=== PATIENT | female | born 2000 | race Caucasian/White ===

== ENCOUNTER 2025-08-14 14:05 | Emergency (ER) | payer OTHER ==
[~2025-08-14] VITALS: Ht 144.8 cm; Wt 61.3 kg
[2025-08-14 14:07] VITALS: TEMP 98.3
[2025-08-14 14:40] LABS: PLATELET COUNT (AUTO) 246 K/uL (150-450); RED BLOOD CELL COUNT(AUTO) 4.18 MIL/uL (4.00-5.20); RED CELL DISTRIBUTION WIDTH 15.8 % (11.5-14.5); WHITE BLOOD COUNT (AUTO) 10.1 K/uL (4.5-11.0)
[2025-08-14 14:50] LABS: CALCIUM, TOTAL 9.6 mg/dL (8.8-10.5); CREATININE 0.50 mg/dL (0.60-1.30); GLOMERULAR FILTR. RATE CALC > 60 mL/min (>60); GLUCOSE,RANDOM 139 mg/dL (70-110); SODIUM SERUM 137 mmol/L (136-145); UREA NITROGEN, BLOOD 11 mg/dL (7-18)
[2025-08-14 14:55] LABS: RBC MORPHOLOGY COMMENT ABNORMAL RBC MORPH
[2025-08-14 14:56] LABS: ASPARTATE AMINOTRANSFERASE 23.0 U/L (15-37); HCG,QUANTITATIVE 1.0 mIU/mL (0-6); TOTAL PROTEIN, SERUM 7.4 g/dL (6.4-8.2)
[2025-08-14] MEDS: FAMOTIDINE 20 MG/2 ML VIAL IVP ONE (15:43)
[2025-08-14] MEDS: SODIUM CHLORIDE 0.9% 1,000 ML IV ONE (15:44)
[2025-08-14 15:54] LABS: APPEARANCE,URINE HAZY (CLEAR); GLUCOSE, URINE (UA) NEGATIVE (NEGATIVE); LEUKOCYTE ESTERASE ,URINE SMALL (NEGATIVE); NITRATE,URINE NEGATIVE (NEGATIVE); OCCULT BLOOD,URINE NEGATIVE (NEGATIVE); SPECIFIC GRAVITIY, URINE 1.010 (1.003-1.030)
[2025-08-14 16:06] LABS: AMORPHOUS SEDIMENT,UR Few /LPF (None Seen); SQUAMOUS EPITHELIAL CELL,UR Moderate /LPF (None Seen)
[2025-08-14 18:31] VITALS: BP 113/77; PULSE 70; RESP 14; O2SAT 100
== END 2025-08-14 18:41 ==
LOC: EMS 14:05
DX: K80.20 Calculus of gallbladder without cholecystitis without obstruction (principal); R10.13 Epigastric pain; N89.8 Other specified noninflammatory disorders of vagina
CPT/HCPCS: 99285; 96374; 96361; 76705; 80048; 80076; 81001; 83690; 84702; 85025; 36415; J3490; J7030